=== PATIENT | male | born 1955 | race Caucasian/White ===

== ENCOUNTER 2017-12-27 08:37 | Outpatient (CLI) | payer OTHER, MEDICARE ==
[2017-12-27] MEDS ORDERED: LIDOCAINE 1% 300 MG/30 ML SDV ONE (09:15)
[2017-12-27] MEDS ORDERED: NA BICARBONATE 50 MEQ/50 ML VIAL ONE (09:16)
[2017-12-27] MEDS ORDERED: IOPAMIDOL (ISOVUE-M 300) 15 ML VIAL ONE (09:16)
[2017-12-27 09:22] LABS: INR 1.03 (0.83-1.16); PROTIME(PATIENT) 13.7 SEC (12.0-15.0)
[2017-12-27] MEDS ORDERED: fentaNYL 100 MCG/2 ML INJ ONE (10:37)
[2017-12-27] MEDS ORDERED: ONDANSETRON 4 MG/2 ML VIAL ONE (10:54)
[2017-12-27] MEDS ORDERED: DIAZEPAM 5 MG/ML 1 ML SYR IVP ONE (11:15)
--- NOTE | 2017-12-27 12:04 | PDRADPN ---
Radiology Procedure Note Date of Procedure: 12/27/17 Radiologist: Jamar Bob Anesthesia: Local (Specify) Pre-op Diagnosis: cervical fusion, question stenosis Post-op Diagnosis: same Indication: unable to MRI Procedure: lumbar intrathecal injection for cervical myelogram Finding(s): Despite free return of CSF after L4/5 puncture, several mL of isovue opacified epidural space in addition to myelographic opacification. Suggests narrowing at this level. Subsequent puncture at L3/4 and myelogram was perfomed with good intrathecal opacification. Post procedural CT myelogram had good opacification. Patient recovery prolonged due to severe gluteal and lower extremity muscle spasm, which improved rapidly with single dose of fentanyl and lorazepam. Inf/Abcess present in the surg proc area at time of surgery?: No EBL: Minimal
[2017-12-27 13:19] VITALS: BP 124/86
== END 2017-12-27 13:20 | disposition home or self-care (01) ==
LOC: FIMAGING 08:37
PROVIDERS: ATTEND Physician Assistant
PROC: B01B1ZZ Fluoroscopy of Spinal Cord using Low Osmolar Contrast (ICD-10-PCS; principal; 2017-12-27)
DX: M50.31 Other cervical disc degeneration, high cervical region (principal); M43.22 Fusion of spine, cervical region; Z95.810 Presence of automatic (implantable) cardiac defibrillator
CPT/HCPCS: 62302; 72050; 72126; 72240; J2405; J3010; J3360; Q9967